=== PATIENT | male | born 1970 | race American Indian/Alaskan Native ===

== ENCOUNTER 2021-04-21 00:18 | Emergency (ER) | payer SELFPAY ==
--- NOTE | 2021-04-21 00:32 | Emergency Department Report ---
ED CPR HPI - General Stated Complaint: CARDIAC ARREST Time Seen by Provider: 04/21/21 00:18 Source: EMS Mode of arrival: Stretcher Limitations: Altered Mental Status, Physical Limitation - History of Present Illness Initial Comments: Patient is an approximate 50-year-old male patient that presents emergency room for cardiac arrest. Patient brought in by EMS. EMS states the patient was very short of breath deciding a breathing treatment and then collapsed. Patient's family called EMS. Patient has a history of asthma and hypertension. No other history reported. Patient intubated by EMS. Patient has a 7.0 ET tube. Chest compressions being done by EMS. Patient had 5 rounds of epi and 1 round of bicarb. Radio report received from EMS prior to their arrival. Patient did patient report received once EMS arrived to the hospital. Complaint: found unresponsive -: minute(s) Place: home Bystander CPR Performed: No AED Applied by Bystander/Electrical Technician: No Shock Advised: No Initial Findings in the Field: unresponsive, no respirations, no pulse ROSC in the Field: No Associated Injuries: No Associated Symptoms: shortness of breath Treatments Prior to Arrival: intubation, BMV, chest compressions, epinephrine mgs #, sodium bicarbonate ED Review of Systems ROS: Stated complaint: CARDIAC ARREST Other details as noted in HPI Comment: Unobtainable due to pts medical conditions ED Past Medical Hx - Past Medical History Previous Medical History?: Yes Hx Hypertension: Yes Hx Asthma: Yes - Surgical History Past Surgical History?: No - Family History Family history: no significant - Social History Smoking Status: Unknown if ever smoked Substance Use Type: None ED Physical Exam - General General appearance: other - Head Head exam: Present: atraumatic, normocephalic - Eye Eye exam: Present: other (Pupils fixed and dilated.) - ENT ENT exam: Present: mucous membranes moist - Neck Neck exam: Present: normal inspection - Respiratory Respiratory exam: Present: other (ET tube placement verified with bilateral breath sounds.) - Cardiovascular Cardiovascular Exam: Present: other (No pulse noted.) - GI/Abdominal GI/Abdominal exam: Present: soft - Rectal Rectal exam: Present: deferred - Extremities Exam Extremities exam: Present: normal inspection - Neurological Exam Neurological exam: Present: altered - Skin Skin exam: Present: warm, dry, intact, normal color. Absent: rash ED Course - Reevaluation(s) Reevaluation #1: Patient arrived via EMS. Report received from EMS. Patient transferred to our [facility] and CPR continued. No pulse noted. Asystole on the monitor. CPR continued. 04/21/21 00:13 Reevaluation #2: Resuscitation efforts were terminated due to no signs of life. Patient asystole on the monitor. No pulse noted. No cardiac motion noted. Code ran in accordance with ACLS guidelines. Family support given once the family arrives. 04/21/21 00:17 Reevaluation #3: Family meeting done. Family support given. All concerns addressed. 04/21/21 00:47 ED Medical Decision Making - Medical Decision Making Patient is a 50-year-old male that presents emergency room with cardiac arrest. Patient had multiple rounds of CPR and has ACLS protocol prior to patient brought in by EMS. Resuscitation efforts were terminated due to no signs of life. Code ran in accordance with ACLS guidelines. See nurses code note. Critical care time documented due to the multiple reassessments, prolonged time at the bedside, interpretation of rhythm strip and ACLS guidelines. - Differential Diagnosis Cardiac arrest Critical Care Time: Yes Critical care time in (mins) excluding proc time.: 35 Critical care attestation.: If time is entered above; I have spent that time in minutes in the direct care of this critically ill patient, excluding procedure time. Critical Care Time: 35 minutes ED Disposition Clinical Impression: Cardiac arrest Disposition: 20 Is pt being admited?: No Does the pt Need Aspirin: No Condition: Critical Time of Disposition: 01:18
== END 2021-04-21 04:39 ==
LOC: EDBD → ED 00:18
DX: I46.9 Cardiac arrest, cause unspecified (principal); I10 Essential (primary) hypertension; J45.909 Unspecified asthma, uncomplicated
CPT/HCPCS: 92950; 99285